=== PATIENT | male | born 1955 | race Caucasian/White ===

== ENCOUNTER → 2024-01-13 09:04 | Outpatient (REF) | payer OTHER, SELFPAY ==
[2024-01-13 12:04] LABS: % Basophils 0.5 % (0-2); % Eosinophils 1.5 % (0-6); % Immature Granulocytes 0.2 % (0-0.5); % Lymphocytes 21.6 % (20.5-51.1); % Monocytes 6.9 % (1.7-9.3); % Neutrophils 69.3 % (42.2-75.2); Absolute Eosinophils 0.1 10^3/uL (0-0.7); Absolute Lymphocytes 1.7 10^3/uL (1.2-3.4); Absolute Monocytes 0.6 10^3/uL (0.1-0.6); Absolute Neutrophils 5.6 10^3/uL (1.4-6.5); Hematocrit 38.8 % (39.0-52.0); Hemoglobin 12.3 g/dL (13.0-18.0); Mean Corp Hgb Conc. 31.7 g/dL (33.0-37.0); Mean Corpuscular Hgb 19.6 pg (27.0-31.0); Mean Corpuscular Volume 61.8 fL (80.0-94.0); Mean Platelet Volume 10.2 fL (7.4-10.4); Nucleated Red Blood Cells % 0 % (-); Platelet Count 182 10^3/uL (130-400); Red Blood Cell Count 6.28 10^6/uL (4.70-6.10); Red Cell Dist. Width 18.1 % (11.5-14.5); White Blood Cell Count 8.1 10^3/uL (4.8-10.8)
[2024-01-13 12:18] LABS: ALT (SGPT) 21 U/L (0-50); AST (SGOT) 26 U/L (17-59); Albumin 4.4 g/dl (3.5-5.0); Alkaline Phosphatase 60 U/L (38-126); Blood Urea Nitrogen 17 mg/dl (9-20); Calcium 9.4 mg/dl (8.4-10.2); Carbon Dioxide 24 mmol/L (22-30); Chloride 101 mmol/L (98-107); Glucose 280 mg/dl (70-99); HDL Cholesterol 28 mg/dl; LDL Cholesterol, Calculated 37 mg/dl; Sodium 137 mmol/L (135-145); Total Bilirubin 0.9 mg/dl (0.2-1.3); Total Cholesterol 112 mg/dl (50-199); Triglyceride 235 mg/dl (10-149); Very Low Density Lipoprotein 47 mg/dl (0-30); eGFR > 60.00
[2024-01-13 12:21] LABS: Urine Albumin Trace (Neg - Trace); Urine Bilirubin Negative (Negative); Urine Character Clear (Clear); Urine Color Yellow; Urine Glucose 3+ (Negative); Urine Ketone Trace (Negative); Urine Leukocyte Negative (Negative); Urine Nitrite Negative (Negative); Urine Occult Blood Negative (Negative); Urine Urobilinogen Negative (Neg - 1+)
[2024-01-13 12:26] LABS: Erythrocyte Sed Rate 10 mm/hour (0-20)
[2024-01-13 12:38] LABS: Glycohemoglobin (HgbA1c) 11.7 % (4.0-5.6); Vitamin D, 25-OH*** 22.8 ng/mL (30-80)
[2024-01-13 12:52] LABS: PSA, Total - Screen 0.32 ng/ml (0.0-4.0); TSH 1.59 uIU/ml (0.47-4.68)
[2024-01-13 15:25] LABS: Microalbumin, Random Urine 26.3 mg/dl (0.6-1.7); Microalbumin/creatinine Ratio 262.5 mg/g
== END ==
LOC: HWLAB 09:04
PROVIDERS: ATTENDING PHYSICIAN Internal Medicine
DX: L97.515 Non-pressure chronic ulcer of other part of right foot with muscle involvement without evidence of necrosis (principal); E11.621 Type 2 diabetes mellitus with foot ulcer; E78.2 Mixed hyperlipidemia; I10 Essential (primary) hypertension; Z12.5 Encounter for screening for malignant neoplasm of prostate; R79.89 Other specified abnormal findings of blood chemistry
CPT/HCPCS: 36415; 73660; 80053; 80061; 81003; 82043; 82306; 82570; 83036; 84443; 85025; 85652; 86140; G0103

== ENCOUNTER → 2024-01-26 12:31 | Outpatient (REF) | payer OTHER, SELFPAY | LOC: WOUND 12:31 | PROVIDERS: ATTENDING PHYSICIAN Surgery; FAMILY PHYSICIAN Internal Medicine Geriatric Medicine | DX: L97.515 Non-pressure chronic ulcer of other part of right foot with muscle involvement without evidence of necrosis (principal); E11.621 Type 2 diabetes mellitus with foot ulcer; E11.42 Type 2 diabetes mellitus with diabetic polyneuropathy; I10 Essential (primary) hypertension | CPT/HCPCS: 11042; 99204 ==

== ENCOUNTER → 2024-02-02 14:02 | Outpatient (REF) | payer OTHER, SELFPAY | LOC: WOUND 14:02 | PROVIDERS: ATTENDING PHYSICIAN Surgery; FAMILY PHYSICIAN Internal Medicine Geriatric Medicine | DX: L97.515 Non-pressure chronic ulcer of other part of right foot with muscle involvement without evidence of necrosis (principal); E11.621 Type 2 diabetes mellitus with foot ulcer; E11.42 Type 2 diabetes mellitus with diabetic polyneuropathy; I10 Essential (primary) hypertension | CPT/HCPCS: 99213 ==

== ENCOUNTER → 2024-02-16 14:48 | Outpatient (REF) | payer OTHER, SELFPAY | LOC: WOUND 14:48 | PROVIDERS: ATTENDING PHYSICIAN Surgery; FAMILY PHYSICIAN Internal Medicine Geriatric Medicine | DX: L97.515 Non-pressure chronic ulcer of other part of right foot with muscle involvement without evidence of necrosis (principal); E11.621 Type 2 diabetes mellitus with foot ulcer; E11.42 Type 2 diabetes mellitus with diabetic polyneuropathy; I10 Essential (primary) hypertension | CPT/HCPCS: 99212 ==

== ENCOUNTER → 2025-05-12 07:29 | Outpatient (REF) | payer OTHER, SELFPAY ==
[2025-05-12 10:15] LABS: Hematocrit 40.6 % (39.0-52.0); Hemoglobin 12.8 g/dL (13.0-18.0); Mean Corp Hgb Conc. 31.5 g/dL (33.0-37.0); Mean Corpuscular Volume 62.1 fL (80.0-94.0); Nucleated Red Blood Cells % 0 % (-); Platelet Count 172 10^3/uL (130-400); Red Cell Dist. Width 18.6 % (11.5-14.5)
[2025-05-12 10:25] LABS: ALT (SGPT) 20 U/L (0-50); AST (SGOT) 18 U/L (17-59); Albumin 4.7 g/dl (3.5-5.0); Alkaline Phosphatase 50 U/L (38-126); Blood Urea Nitrogen 15 mg/dl (9-20); Calcium 9.8 mg/dl (8.4-10.2); Carbon Dioxide 26 mmol/L (22-30); Chloride 106 mmol/L (98-107); Glucose 248 mg/dl (70-99); HDL Cholesterol 29 mg/dl; LDL Cholesterol, Calculated 45 mg/dl; Potassium 4.1 mmol/L (3.5-5.1); Sodium 141 mmol/L (135-145); Total Protein 7.4 g/dl (6.3-8.2); Very Low Density Lipoprotein 51 mg/dl (0-30); eGFR > 60.00
[2025-05-12 10:52] LABS: Microalbumin, Random Urine 7.9 mg/dl (0.6-1.7)
[2025-05-12 11:03] LABS: Vitamin D, 25-OH*** 21.4 ng/mL (30-80)
[2025-05-12 11:17] LABS: TSH 2.43 uIU/ml (0.47-4.68)
[2025-05-12 11:32] LABS: Microalb - Urine Creatinine 69.800 mg/dl
[2025-05-12 14:01] LABS: Glycohemoglobin (HgbA1c) 10.1 % (4.0-5.6)
== END ==
LOC: HWLAB 07:29
PROVIDERS: ATTENDING PHYSICIAN Internal Medicine
DX: E11.65 Type 2 diabetes mellitus with hyperglycemia (principal); I10 Essential (primary) hypertension; E78.2 Mixed hyperlipidemia; E11.42 Type 2 diabetes mellitus with diabetic polyneuropathy; R79.89 Other specified abnormal findings of blood chemistry
CPT/HCPCS: 36415; 80053; 80061; 82043; 82306; 82570; 83036; 84443; 85025

== ENCOUNTER → 2025-07-14 07:07 | Outpatient (REF) | payer OTHER, SELFPAY ==
[2025-07-14 10:58] LABS: ALT (SGPT) 14 U/L (0-50); AST (SGOT) 16 U/L (17-59); Albumin 4.4 g/dl (3.5-5.0); Alkaline Phosphatase 56 U/L (38-126); Blood Urea Nitrogen 14 mg/dl (9-20); Calcium 9.2 mg/dl (8.4-10.2); Carbon Dioxide 26 mmol/L (22-30); Chloride 105 mmol/L (98-107); Glucose 222 mg/dl (70-99); Potassium 3.8 mmol/L (3.5-5.1); Sodium 140 mmol/L (135-145); Total Protein 7.0 g/dl (6.3-8.2); eGFR > 60.00
== END ==
LOC: HWLAB 07:07
PROVIDERS: ATTENDING PHYSICIAN Nurse Practitioner Family
DX: E11.65 Type 2 diabetes mellitus with hyperglycemia (principal); Z79.4 Long term (current) use of insulin
CPT/HCPCS: 36415; 80053; 82985